=== PATIENT | male | born 1935 | race Caucasian/White ===

== ENCOUNTER 2018-04-21 19:41 | Inpatient (IN) | payer MEDICARE ==
[~2018-04-21] VITALS: Ht 177.8 cm; Wt 74.4 kg
[2018-04-21 20:27] LABS: BASOPHILS % (AUTO) 0.7 % (0.0-5.0); EOSINOPHILS % (AUTO) 1.3 % (0.0-8.0); HEMATOCRIT 37.9 % (42-54); LYMPHOCYTES % (AUTO) 18.3 % (21.0-51.0); MEAN CORPUSCULAR HEMOGLOBIN 31.2 pg (27.0-33.0); MEAN CORPUSCULAR HGB CONC 33.8 g/dL (32.0-36.0); MEAN CORPUSCULAR VOLUME 92.1 fL (79-99); MONOCYTES % (AUTO) 7.3 % (3.0-13.0); NEUTROPHILS % (AUTO) 72.4 % (40.0-77.0); PLATELET COUNT (AUTO) 145 K/uL (130-400); RED BLOOD CELL COUNT(AUTO) 4.12 MIL/uL (4.50-6.20); RED CELL DISTRIBUTION WIDTH 14.2 % (11.0-15.5); WHITE BLOOD COUNT (AUTO) 5.7 K/uL (4.8-10.8)
[2018-04-21 20:40] LABS: PARTIAL THROMBOPLASTIN TIME 31.3 SEC (26.3-35.5); PROTHROMBIN TIME 10.5 SEC (9.6-11.6)
[2018-04-21 20:44] LABS: CREATININE 1.1 mg/dL (0.5-1.5); POTASSIUM 4.3 mmol/L (3.5-5.1)
[2018-04-21 20:48] LABS: ALBUMIN 3.8 g/dL (3.5-5.0); BILIRUBIN,TOTAL 0.3 mg/dL (0.2-1.0); TOTAL PROTEIN, SERUM 7.7 g/dL (6.0-8.3)
[2018-04-21] MEDS: CEFTRIAXONE SODIUM 1 GM IVP SCH (21:00)
[2018-04-21] MEDS ORDERED: LIDOCAINE HCL 2% JELLY 5 ML ONE (21:13)
[2018-04-21 21:41] LABS: BILIRUBIN,URINE Negative (NEGATIVE); GLUCOSE, URINE (UA) Negative (NEGATIVE); KETONES,URINE Negative (NEGATIVE); LEUKOCYTE ESTERASE ,URINE Negative (NEGATIVE); NITRATE,URINE Negative (NEGATIVE); OCCULT BLOOD,URINE Moderate (NEGATIVE); PROTEIN,URINE POS 2+ (NEGATIVE); UROBILINOGEN,URINE 0.2 mg/dL (0.2-1.0)
[2018-04-21 21:42] LABS: APPEARANCE,URINE CLOUDY (CLEAR); COLOR,URINE Red (YELLOW)
[2018-04-21 21:44] LABS: BACTERIA,URINE Rare /HPF (None Seen); RBC,URINE Full Field /HPF (0-1); SQUAMOUS EPITHELIAL CELL,UR None Seen /HPF (0-2); WBC,URINE 0-1 /HPF (0-1)
[2018-04-21] MEDS ORDERED: IOPAMIDOL-370 100 ML VIAL IV ONE (21:47)
[2018-04-21] MEDS ORDERED: SODIUM CHLORIDE 0.9% 50 ML IV ONE (22:56)
[2018-04-21] MEDS ORDERED: CEFTRIAXONE SODIUM 1 GM ONE (22:56)
[2018-04-21] MEDS ORDERED: SODIUM CHLORIDE 0.9% 1000ML 1,000 ML IV ONE (22:56)
[2018-04-22] VITALS (16 sets, daily range): BP systolic 93–174; BP diastolic 43–91
[2018-04-22] MEDS ORDERED: MORPHINE SULFATE 2 MG/ML 1ML SYG ONE (01:38)
[2018-04-22] MEDS: SODIUM CHLORIDE 0.9% 1000ML 1,000 ML IV SCH ×4 (03:11→17:53)
[2018-04-22] MEDS ORDERED: MORPHINE SULFATE 2 MG/ML 1ML SYG IVP PRN (04:00)
[2018-04-22] MEDS ORDERED: MORPHINE SULFATE 4 MG/1ML SYG ONE (05:15)
[2018-04-22] MEDS ORDERED: MORPHINE SULFATE 4 MG/1ML SYG IVP PRN ×2 (08:00→09:30)
[2018-04-22] MEDS ORDERED: LACTATED RINGERS 1000ML 1,000 ML IV ONE (11:57)
[2018-04-22] MEDS ORDERED: PROPOFOL 10 MG/ML 20ML VIAL IV ONE (12:09)
[2018-04-22] MEDS ORDERED: FENTANYL CITRATE PF 50 MCG/1 ML 2ML VIAL ONE (12:09)
[2018-04-22] MEDS ORDERED: EPHEDRINE SULFATE 50 MG/ML AMPULE ONE (12:25)
[2018-04-22] MEDS ORDERED: ROCURONIUM BROMIDE 10MG/1ML 5ML VL ONE (12:33)
[2018-04-22] MEDS ORDERED: ONDANSETRON HCL 4 MG/2 ML VIAL ONE (12:33)
[2018-04-22] MEDS ORDERED: LIDOCAINE PF 2% 5ML ABBOJECT ONE (12:33)
[2018-04-22] MEDS ORDERED: NEOSTIGMINE 5MG/5ML SYR IV ONE (12:33)
[2018-04-22] MEDS ORDERED: GLYCOPYRROLATE 0.2 MG/ML 5 ML VIAL ONE (12:33)
[2018-04-22] MEDS ORDERED: HYDROCODONE/ACETAMINOPHEN 5/325 MG TAB PO PRN (15:30)
[2018-04-22] MEDS ORDERED: TEMA30CA PO (19:42)
[2018-04-22] MEDS: BACITRACIN 28.4 GM OINT TP SCH (20:32)
[2018-04-22] MEDS: CEFTRIAXONE SODIUM 1 GM IVP SCH (20:32)
[2018-04-22] MEDS ORDERED: TEMAZEPAM 30 MG CAP PO SCH (21:00)
[2018-04-23] VITALS (12 sets, daily range): BP systolic 92–177; BP diastolic 44–98
[2018-04-23] MEDS: LORAZEPAM 2 MG/ML 1 ML VIAL IVP PRN ×2 (01:11→13:32)
[2018-04-23] MEDS: SODIUM CHLORIDE 0.9% 1000ML 1,000 ML IV SCH ×3 (03:00→23:00)
[2018-04-23] MEDS: HYDROCODONE/ACETAMINOPHEN 5/325 MG TAB PO PRN ×2 (03:42→09:47)
[2018-04-23] MEDS: FINASTERIDE 5 MG TABLET PO SCH (09:47)
[2018-04-23] MEDS ORDERED: HALOPERIDOL LACTATE 5 MG/ML VIAL ONE (12:31)
[2018-04-23] MEDS: BACITRACIN 28.4 GM OINT TP SCH ×2 (13:32→20:31)
[2018-04-23 15:06] LABS: ABG BASE EXCESS -4.2 mmol/L (-2.0-3.0); ABG HCO3 19.8 mmol/L (21.0-28.0); ABG OXYGEN SATURATION 84.8 % (95.0-99.0); ABG PCO2 33 mmHg (35-48)
[2018-04-23 15:14] LABS: CREATININE 1.4 mg/dL (0.5-1.5); POTASSIUM 4.4 mmol/L (3.5-5.1)
[2018-04-23 15:15] LABS: HEMATOCRIT 34.2 % (42-54); MEAN CORPUSCULAR VOLUME 93.9 fL (79-99); PLATELET COUNT (AUTO) 133 K/uL (130-400); RED BLOOD CELL COUNT(AUTO) 3.64 MIL/uL (4.50-6.20); WHITE BLOOD COUNT (AUTO) 11.7 K/uL (4.8-10.8)
[2018-04-23 15:42] LABS: B-TYPE NATRIURETIC PEPTIDE 1240 pg/mL (0-100)
[2018-04-23] MEDS ORDERED: FUROSEMIDE 10 MG/ML 4ML VIAL ONE (15:57)
[2018-04-23] MEDS ORDERED: FUROSEMIDE 10 MG/ML 4ML VIAL IV ONE (17:00)
[2018-04-23 17:36] LABS: CREATINE KINASE MB 10.3 ng/mL (0.5-3.6); TROPONIN I 0.51 ng/mL (0.00-0.06)
[2018-04-23] MEDS: HALOPERIDOL LACTATE 5 MG/ML VIAL IV PRN ×2 (18:26→23:29)
[2018-04-23] MEDS ORDERED: ACETAMINOPHEN 650 MG SUPPOSITORY RC PRN (18:30)
[2018-04-23] MEDS: CEFTRIAXONE SODIUM 1 GM IVP SCH (20:28)
[2018-04-23 23:51] LABS: CREATINE KINASE MB 47.6 ng/mL (0.5-3.6)
[2018-04-23 23:55] LABS: TROPONIN I 12.95 ng/mL (0.00-0.06)
[2018-04-24] VITALS (24 sets, daily range): BP systolic 86–164; BP diastolic 35–98
[2018-04-24 05:40] LABS: HEMATOCRIT 35.3 % (42-54); MEAN CORPUSCULAR HEMOGLOBIN 31.7 pg (27.0-33.0); MEAN CORPUSCULAR HGB CONC 34.4 g/dL (32.0-36.0); MEAN CORPUSCULAR VOLUME 92.1 fL (79-99); PLATELET COUNT (AUTO) 148 K/uL (130-400); RED BLOOD CELL COUNT(AUTO) 3.83 MIL/uL (4.50-6.20); RED CELL DISTRIBUTION WIDTH 14.6 % (11.0-15.5); WHITE BLOOD COUNT (AUTO) 13.9 K/uL (4.8-10.8)
[2018-04-24 05:58] LABS: ABG BASE EXCESS -2.4 mmol/L (-2.0-3.0); ABG HCO3 20.4 mmol/L (21.0-28.0); ABG OXYGEN SATURATION 96.2 % (95.0-99.0); ABG PCO2 30 mmHg (35-48)
[2018-04-24 06:13] LABS: ALBUMIN 2.9 g/dL (3.5-5.0); BILIRUBIN,TOTAL 0.4 mg/dL (0.2-1.0); CREATINE KINASE MB 36.3 ng/mL (0.5-3.6); CREATININE 1.3 mg/dL (0.5-1.5); POTASSIUM 4.1 mmol/L (3.5-5.1); TOTAL PROTEIN, SERUM 6.5 g/dL (6.0-8.3)
[2018-04-24 06:15] LABS: TROPONIN I 11.87 ng/mL (0.00-0.06)
[2018-04-24] MEDS: FINASTERIDE 5 MG TABLET PO SCH (08:34)
[2018-04-24] MEDS: SODIUM CHLORIDE 0.9% 1000ML 1,000 ML IV SCH (08:34)
[2018-04-24] MEDS: FAMOTIDINE/PF 20 MG/2 ML VIAL IV SCH (08:34)
[2018-04-24] MEDS: BACITRACIN 28.4 GM OINT TP SCH ×2 (08:36→22:52)
[2018-04-24] MEDS ORDERED: THIAMINE HCL 100 MG/ML 2ML VIAL IVP SCH ×2 (09:00)
[2018-04-24] MEDS ORDERED: THIAMINE HCL 300 MG in SODIUM CHLORIDE 0.9% 50 ML IM SCH (09:00)
[2018-04-24] MEDS: THIAMINE HCL 300 MG in SODIUM CHLORIDE 0.9% 50 ML IM SCH (09:10)
[2018-04-24] MEDS ORDERED: FUROSEMIDE 10 MG/ML 2ML VIAL IV SCH (09:45)
[2018-04-24] MEDS: FUROSEMIDE 10 MG/ML 4ML VIAL IV SCH ×2 (14:55→22:51)
[2018-04-24] MEDS: METRONIDAZOLE 500MG/100ML BAG 100 ML IV SCH ×2 (14:55→22:51)
[2018-04-24] MEDS: IPRATROPIUM/ALBUTEROL SULFATE 3 ML SOLUTION IH SCH (17:19)
[2018-04-24] MEDS: HALOPERIDOL LACTATE 5 MG/ML VIAL IV PRN ×2 (19:22→22:51)
[2018-04-24] MEDS: CEFTRIAXONE SODIUM 1 GM IVP SCH (22:56)
[2018-04-25] VITALS (12 sets, daily range): BP systolic 90–123; BP diastolic 44–65
[2018-04-25] MEDS: IPRATROPIUM/ALBUTEROL SULFATE 3 ML SOLUTION IH SCH ×3 (00:05→12:00)
[2018-04-25 03:45] LABS: HEMATOCRIT 38.1 % (42-54); MEAN CORPUSCULAR HEMOGLOBIN 31.5 pg (27.0-33.0); MEAN CORPUSCULAR HGB CONC 33.7 g/dL (32.0-36.0); MEAN CORPUSCULAR VOLUME 93.5 fL (79-99); PLATELET COUNT (AUTO) 136 K/uL (130-400); RED BLOOD CELL COUNT(AUTO) 4.07 MIL/uL (4.50-6.20); RED CELL DISTRIBUTION WIDTH 14.8 % (11.0-15.5); WHITE BLOOD COUNT (AUTO) 10.3 K/uL (4.8-10.8)
[2018-04-25 03:58] LABS: CREATININE 2.2 mg/dL (0.5-1.5); POTASSIUM 3.5 mmol/L (3.5-5.1)
[2018-04-25] MEDS: HALOPERIDOL LACTATE 5 MG/ML VIAL IV PRN ×2 (04:04→09:27)
[2018-04-25 04:13] LABS: B-TYPE NATRIURETIC PEPTIDE > 5000 pg/mL (0-100)
[2018-04-25] MEDS: METRONIDAZOLE 500MG/100ML BAG 100 ML IV SCH (05:43)
[2018-04-25] MEDS: FUROSEMIDE 10 MG/ML 4ML VIAL IV SCH (05:43)
[2018-04-25] MEDS: FINASTERIDE 5 MG TABLET PO SCH (08:38)
[2018-04-25] MEDS: FAMOTIDINE/PF 20 MG/2 ML VIAL IV SCH (08:38)
[2018-04-25] MEDS: THIAMINE HCL 300 MG in SODIUM CHLORIDE 0.9% 50 ML IM SCH (09:00)
[2018-04-25] MEDS ORDERED: LORAZEPAM 2 MG/ML 1 ML VIAL IVP PRN (11:30)
[2018-04-25] MEDS ORDERED: MORPHINE SULFATE 2 MG/ML 1ML SYG IVP PRN (11:31)
== END 2018-04-25 12:07 | disposition expired | DRG 717 ==
LOC: EDH 19:41 → OBSVTOIN 20:10 → EDHIP 20:10 → 3CH 23:56 → 2CH 04-23 16:24
PROVIDERS: ADMIT Internal Medicine Hematology & Oncology; ATTEND Internal Medicine Hematology & Oncology
PROC: 0TCB8ZZ Extirpation of Matter from Bladder, Via Natural or Artificial Opening Endoscopic (ICD-10-PCS; principal; 2018-04-21)
PROC: 0W3R8ZZ Control Bleeding in Genitourinary Tract, Via Natural or Artificial Opening Endoscopic (ICD-10-PCS; 2018-04-21)
PROC: 5A09457 Assistance with Respiratory Ventilation, 24-96 Consecutive Hours, Continuous Positive Airway Pressure (ICD-10-PCS; 2018-04-23)
DX: N40.1 Benign prostatic hyperplasia with lower urinary tract symptoms (principal); I21.4 Non-ST elevation (NSTEMI) myocardial infarction; J96.01 Acute respiratory failure with hypoxia; I50.21 Acute systolic (congestive) heart failure; F05 Delirium due to known physiological condition; R31.0 Gross hematuria; R35.0 Frequency of micturition; F03.90 Unspecified dementia, unspecified severity, without behavioral disturbance, psychotic disturbance, mood disturbance, and anxiety; K40.90 Unilateral inguinal hernia, without obstruction or gangrene, not specified as recurrent; Z51.5 Encounter for palliative care; F17.210 Nicotine dependence, cigarettes, uncomplicated; N28.9 Disorder of kidney and ureter, unspecified; Z66 Do not resuscitate; Z82.0 Family history of epilepsy and other diseases of the nervous system; Z82.5 Family history of asthma and other chronic lower respiratory diseases; Q54.9 Hypospadias, unspecified
CPT/HCPCS: 36415; 36600; 71045; 71046; 74178; 76870; 80048; 80053; 81001; 82140; 82330; 82435; 82550; 82553; 82803; 82947; 83605; 83874; 83880; 84132; 84153; 84154; 84295; 84484; 85018; 85025; 85027; 85378; 85610; 85730; 87040; 87088; 93005; 93306; 94640; 94660; 94664; A4218; A4354; J0696; J1630; J1940; J2001; J2060; J2270; J2405; J2704; J2710; J3010; J3411; J3490; J7030; J7120; Q9967